=== PATIENT | male | born 1950 | race Caucasian/White ===

== ENCOUNTER → 2022-05-13 | Outpatient (CLI) | payer OTHER, SELFPAY ==
--- NOTE | 2022-05-13 13:26 | ECHOD_ITS ---
Version 2 Reason For Study: CAD Procedure This was a 2D Doppler, Color Flow transthoracic echocardiogram. Technically difficult study. Exam performed in department. Left Ventricle Normal LV size. Left ventricular systolic function is normal. The estimated ejection fraction is 55 %. Stage 1 diastolic dysfunction. Segmental dysfunction with preserved ejection fraction (see wall motion). Septal [place] : Hypokinetic. Infero-Basal: Hypokinetic. Mid-anteroseptal : Hypokinetic. There are regional wall motion abnormalities as specified. Right Ventricle Normal RV size. Normal systolic function. Aortic Valve Trisinus/trileaflet aortic valve. Pulmonic Valve Normal pulmonic valve. Great Vessels Normal aortic root. The pulmonary artery is normal size. Normal inferior vena cava. Pericardium/Pleural Epicardial fat. MMode/2D Measurements & Calculations LVIDd: 4.8 cm IVSd: 0.95 cm LA dimension: 3.8 cm LVIDs: 3.4 cm LVPWd: 1.0 cm FS: 28.5 % LAV(MOD-sp4): 44.7 ml LA A4 area: 17.6 cm2 RA A4 area: 11.8 cm2 Time Measurements MV dec time: 0.31 sec Doppler Measurements & Calculations MV E max eduardo: 57.4 cm/sec Lat Peak E' Eduardo: 8.2 cm/sec Med Peak E' Eduardo: 7.6 cm/sec MV A max eduardo: 88.3 cm/sec E/E' lat: 7.0 E/E' med: 7.5 MV E/A: 0.65 MV V2 max: 92.8 cm/sec MV dec slope: 188.1 cm/sec2 Ao V2 max: 116.4 cm/sec MV max P.4 mmHg Ao max P.4 mmHg MV V2 mean: 43.8 cm/sec MV mean P.94 mmHg MV V2 VTI: 25.8 cm LV V1 max: 87.2 cm/sec PA V2 max: 89.3 cm/sec LV V1 max P.0 mmHg LV V1 mean P.5 mmHg LV V1 mean: 56.7 cm/sec LV V1 VTI: 16.1 cm ECHO/Echo Complete Interpretation Summary Normal LV size. Left ventricular systolic function is normal. The estimated ejection fraction is 55 %. Stage 1 diastolic dysfunction. Segmental dysfunction with preserved ejection fraction (see wall motion). Ordering Physician: SASKIA BREEN Performed By: Maximus Eid RCS
== END | disposition home or self-care (01) ==
LOC: CVS 13:24
DX: I25.10 Atherosclerotic heart disease of native coronary artery without angina pectoris (principal)
CPT/HCPCS: 93306